=== PATIENT | female | born 1960 | race Caucasian/White ===

== ENCOUNTER 2024-01-18 12:42 | Inpatient (IN) | payer OTHER ==
[~2024-01-18] VITALS: Ht 172.7 cm; Wt 49.8 kg
[2024-01-18] VITALS (10 sets, daily range): BP systolic 152–207; BP diastolic 71–87
[2024-01-18 14:08] LABS: Source, Urine Clean Catch
[2024-01-18 14:12] LABS: Appearance, Urine Clear (Clear); Bilirubin, Urine Neg (Neg); Blood, Urine 1+ (Neg); Glucose Qualitative, Urine Neg (Neg); Ketones, Urine Neg (Neg); Leukocyte Esterase, Urine Neg (Neg); Nitrite, Urine Neg (Neg); Protein, Urine 2+ (Neg); Urobilinogen, Urine NORM (Normal)
[2024-01-18 14:15] LABS: BASOPHILS ABSOLUTE AUTO 0.03 K/mm3 (0.00-0.23); BASOPHILS PERCENT AUTO 1 % (0-2); EOSINOPHILS ABSOLUTE AUTO 0.01 K/mm3 (0.00-0.68); EOSINOPHILS PERCENT AUTO 0 % (0-6); Hematocrit 18.8 % (33.0-51.0); Hemoglobin 6.6 g/dL (11.5-16.0); IMMATURE GRAN ABSOLUTE AUTO 0.03 K/mm3 (0.00-0.10); IMMATURE GRAN PERCENT AUTO 1 % (0-1); LYMPHOCYTES ABSOLUTE AUTO 0.48 K/mm3 (0.84-5.20); LYMPHOCYTES PERCENT AUTO 8 % (21-46); MONOCYTES ABSOLUTE AUTO 0.31 K/mm3 (0.16-1.47); MONOCYTES PERCENT AUTO 5 % (4-13); Mean Corpuscular HGB 28.8 pg (26.0-34.0); Mean Corpuscular HGB Conc 35.1 g/dL (31.5-36.5); Mean Corpuscular Volume 82 fL (80-100); Mean Platelet Volume 9.1 fL (9.1-12.4); NEUTROPHILS ABSOLUTE AUTO 4.88 K/mm3 (1.96-9.15); NEUTROPHILS PERCENT AUTO 85 % (41-73); Platelet Count 325 K/mm3 (150-400); RDW Coefficient Variation 16.4 % (11.7-14.2); RDW Standard Deviation 49.3 fL (35.1-46.3); Red Blood Cell Count 2.29 M/mm3 (3.80-5.20); White Blood Cell Count 5.74 K/mm3 (4.00-11.30)
[2024-01-18 14:18] LABS: Color, Urine Pale Yellow (P-Yellow)
[2024-01-18 14:22] LABS: Bacteria Few /hpf; Squamous Epithelial Cells Few /hpf (Few); White Blood Cells, Urine 0-2 /hpf (0-5)
[2024-01-18 14:46] LABS: Albumin, Blood 3.5 g/dL (3.4-5.0); Albumin/Globulin Ratio 0.7 (0.8-1.8); Bilirubin, Total 0.4 mg/dL (0.1-1.0); Bun/Creatinine Ratio 7.7 (12.0-20.0); Calcium, Blood 9.4 mg/dL (8.5-10.1); Creatinine, Blood 13.3 mg/dL (0.40-1.00); Globulin, Blood 4.7 g/dL (2.2-4.0); Potassium, Blood 5.1 mmol/L (3.5-5.5); Total Protein, Blood 8.2 g/dL (6.4-8.2)
[2024-01-18] MEDS ORDERED: FLU VACC TS2024-25(6MOS UP)/PF 45 MCG/0.5 ML SYRINGE IM SCH (15:40)
[2024-01-18] MEDS ORDERED: Acetaminophen 500 MG Tab PO PRN (17:30)
[2024-01-18] MEDS ORDERED: FentaNYL Citrate 50 MCG/ML 2 ML Injection IV PRN (17:30)
[2024-01-18] MEDS ORDERED: Ondansetron HCl 2 MG / ML 2ML Vial IV PRN (17:30)
[2024-01-18] MEDS ORDERED: HydrALAZINE HCl 25 MG Tab PO PRN (17:30)
[2024-01-18] MEDS ORDERED: NS 500 ML IV ONE ×2 (18:03→19:08)
[2024-01-18] MEDS ORDERED: Midazolam HCl 1MG / ML 2ML Vial ONE ×2 (18:11→18:34)
[2024-01-18] MEDS ORDERED: FentaNYL Citrate 50 MCG/ML 2 ML Injection ONE (18:11)
[2024-01-18] MEDS ORDERED: NS 1,000 ML IV ONE (18:12)
--- NOTE | 2024-01-18 19:52 | NUR ---
ADMISSION PATIENT ARRIVED TO PCU 14 ON HER BED FROM [facility] WHERE BILATERAL NEPHROSTOMIES WERE PLACED. PATIENT IS VERY DROWSY AND IS STRUGGLING TO FIND HER WORDS WITH SLURRED SPEECH BUT ANSWERS ORIENTATION QUESTIONS APPROPRIATELY. PUPILS EQUAL AND REACTIVE. STRENGTH EQUAL BILATERALLY. PATIENT STARTED ON BLOOD TRANSFUSION. LUNG SOUNDS CLEAR.
--- NOTE | 2024-01-18 20:00 | NUR ---
PHYSICIAN COMMUNICATION CONTACTED DR FLYNN TO NOTIFY HER THAT THE PATIENT'S BLOOD PRESSURE IS 199 SYSTOLIC, HEART RATE IN 50'S AND THE SCHEDULED HYDRALAZINE HAS HOLDING PARAMETER SAYS TO HOLD FOR HR UNDER 120. DR FLYNN TO COME SEE THE PATIENT.
[2024-01-18] MEDS ORDERED: HydrALAZINE HCl 20 MG / ML 1ML Vial IV PRN (20:55)
[2024-01-18] MEDS ORDERED: HydrALAZINE HCl 20 MG / ML 1ML Vial IV ONE (21:00)
[2024-01-18] MEDS ORDERED: HydrALAZINE HCl 25 MG Tab PO SCH (21:00)
[2024-01-18 23:00] LABS: Hematocrit 27.1 % (33.0-51.0); Hemoglobin 9.2 g/dL (11.5-16.0)
[2024-01-18] MEDS ORDERED: NS 1,000 ML IV SCH (23:00)
[2024-01-18] MEDS ORDERED: Pantoprazole Sodium 40 MG Injection IV ONE (23:00)
[2024-01-18 23:32] LABS: International Normalized Ratio 0.97; Prothrombin Time Results 10.4 Sec (9.7-11.5)
[2024-01-19] VITALS (7 sets, daily range): BP systolic 131–158; BP diastolic 76–91
[2024-01-19] MEDS ORDERED: NS 500 ML IV SCH (04:25)
[2024-01-19 05:37] LABS: Hematocrit 22.1 % (33.0-51.0); Hemoglobin 7.7 g/dL (11.5-16.0)
--- NOTE | 2024-01-19 06:21 | NUR ---
SHIFT SUMMARY PATIENT ALERT AND ORIENTED X4. WAS MEDICATED PER EMAR FOR HEADACHE AND NAUSEA/VOMITING. ADMINISTERED A ONE TIME DOSE OF IV HYDRALAZINE AFTER DR ANAHY ARREAGA CAME TO ASSESS THE PATIENT. THE HYPERTENSION IS SLOWLY RESOLVING. PATIENT'S MENTATION HAS CLEARED AND IS SPEAKING IN FULL SENTENCES NOW WITHOUT ANY DIFFICULTY. PATIENT WAS ABLE TO WALK TO THE RESTROOM AND BACK WITH ASSISTANCE FOR LINE MANAGEMENT. PATIENT ON ROOM AIR WITH SPO2 >90%. WILL CONTINUE TO MONITOR. CALL LIGHT WITHIN REACH.
[2024-01-19 06:39] LABS: Uric Acid, Blood 7.6 mg/dL (2.6-6.0)
[2024-01-19 06:46] LABS: Albumin, Blood 3.2 g/dL (3.4-5.0); Anion Gap 23 mmol/L (3-11); Blood Urea Nitrogen 106 mg/dL (8-24); CO2, Blood 13 mmol/L (21-32); Calcium, Blood 9.2 mg/dL (8.5-10.1); Chloride, Blood 94 mmol/L (98-108); Glucose, Blood 82 mg/dL (70-99); Potassium, Blood 5.9 mmol/L (3.5-5.5); Sodium, Blood 124 mmol/L (136-145)
[2024-01-19 06:48] LABS: Bun/Creatinine Ratio 8.2 (12.0-20.0); Glomerular Filtration Rate 3 (60-); Phosphorus, Blood 8.1 mg/dL (2.5-4.9)
[2024-01-19] MEDS ORDERED: HydrALAZINE HCl 25 MG Tab PO SCH (09:00)
[2024-01-19 12:50] LABS: Calcium, Blood 8.7 mg/dL (8.5-10.1); Potassium, Blood 5.1 mmol/L (3.5-5.5)
[2024-01-19 12:51] LABS: Bun/Creatinine Ratio 8.3 (12.0-20.0); Creatinine, Blood 12.7 mg/dL (0.40-1.00)
--- NOTE | 2024-01-19 13:57 | NUR ---
PT REPORTS 3/10 BACK PAIN R/T TO "BEING IN BED IN ONE POSITION", SHE WAS OFFERED TYLENOL FOR PAIN WHICH SHE REFUSED, SHE THEN STATES THAT SHE DOES NOT WISH TO RECIEVE "ANYTHING STRONG LIKE FENTANYL BECAUSE I DON'T WANT TO BE AN ADDICT". SHE DISCUSSED WITH DR HOWARD AND MYSELF THAT SHE DOES NOT WISH TO TREAT CANCER WITH RADIATION OR CHEMO, WE DID CONSULT WITH PALLIATIVE CARE, CEDRICK DID ATTEMPT TO SEE PATIENT PT WAS NOT AVAILABLE FOR CONSULT WITH PALLIATIVE AT THE TIME AND CEDRICK WILL RETURN LATER. VSS. SHE IS ALERT, SHE APPEARS TO BE ORIENTED X3 BUT DOES SEEM TO BE FORGETFUL AND IS A POOR HISTORIAN. SHE IS CALM AND COOPERATIVE WITH CARE.
[2024-01-19] MEDS ORDERED: Sodium Bicarbonate 650 MG Tab PO SCH (21:00)
[2024-01-19 21:11] LABS: Bun/Creatinine Ratio 8.8 (12.0-20.0); Calcium, Blood 8.4 mg/dL (8.5-10.1); Creatinine, Blood 12.1 mg/dL (0.40-1.00); Potassium, Blood 5.3 mmol/L (3.5-5.5)
[2024-01-20 03:03] VITALS: BP 190/86
[2024-01-20 04:30] LABS: BASOPHILS ABSOLUTE AUTO 0.09 K/mm3 (0.00-0.23); BASOPHILS PERCENT AUTO 1 % (0-2); EOSINOPHILS ABSOLUTE AUTO 0.06 K/mm3 (0.00-0.68); EOSINOPHILS PERCENT AUTO 1 % (0-6); Hematocrit 28.2 % (33.0-51.0); Hemoglobin 9.4 g/dL (11.5-16.0); IMMATURE GRAN ABSOLUTE AUTO 0.04 K/mm3 (0.00-0.10); IMMATURE GRAN PERCENT AUTO 1 % (0-1); LYMPHOCYTES ABSOLUTE AUTO 0.79 K/mm3 (0.84-5.20); LYMPHOCYTES PERCENT AUTO 11 % (21-46); MONOCYTES ABSOLUTE AUTO 0.64 K/mm3 (0.16-1.47); MONOCYTES PERCENT AUTO 9 % (4-13); Mean Corpuscular HGB 28.2 pg (26.0-34.0); Mean Corpuscular HGB Conc 33.3 g/dL (31.5-36.5); Mean Corpuscular Volume 85 fL (80-100); Mean Platelet Volume 9.2 fL (9.1-12.4); NEUTROPHILS ABSOLUTE AUTO 5.74 K/mm3 (1.96-9.15); NEUTROPHILS PERCENT AUTO 78 % (41-73); Platelet Count 373 K/mm3 (150-400); RDW Standard Deviation 52.6 fL (35.1-46.3); Red Blood Cell Count 3.33 M/mm3 (3.80-5.20); White Blood Cell Count 7.36 K/mm3 (4.00-11.30)
--- NOTE | 2024-01-20 06:24 | NUR ---
Shift Summary- Ping had a relatively good night- no issues noted throughout. Bilateral nephrostomy sites look good. The Left one had scant drainage at the start of shift, and appeared to be slightly swollen compared to the Right side. Right side dressing was clean/dry/intact. Ping complains of no pain at either site. Both nephrostomies are putting out urine, the Right side puts out substantially more urine than the left. At 0630, after my 12hr shift, I totaled up around 3,500mLs of urine output- give or take. notified- labs ordered to monitor electrolytes per Todd's note. By 0600- the Right kidney was putting out pale, yellow urine. The left kidney is still noted to have pink urine noted throughout. No other needs throughout the night, NS still infusing at 150ml/hr as ordered. Pt has good PO intake.
[2024-01-20 06:30] LABS: Albumin, Blood 3.4 g/dL (3.4-5.0); Albumin/Globulin Ratio 0.7 (0.8-1.8); Bilirubin, Total 0.4 mg/dL (0.1-1.0); Globulin, Blood 4.9 g/dL (2.2-4.0); Phosphorus, Blood 7.6 mg/dL (2.5-4.9); Potassium, Blood 4.9 mmol/L (3.5-5.5); Total Protein, Blood 8.3 g/dL (6.4-8.2)
[2024-01-20 06:34] LABS: Bun/Creatinine Ratio 8.2 (12.0-20.0); Creatinine, Blood 11.3 mg/dL (0.40-1.00)
[2024-01-20 07:20] VITALS: BP 152/87
[2024-01-20] MEDS ORDERED: Vitamin B Cmplx/Vit C/Folic Ac 1 Tab PO SCH (09:00)
[2024-01-20] MEDS ORDERED: Thiamine HCl 100 MG Tab PO SCH (09:00)
[2024-01-20 13:13] VITALS: BP 127/69
[2024-01-20 14:55] LABS: Albumin/Globulin Ratio 0.7 (0.8-1.8); Bilirubin, Total 0.4 mg/dL (0.1-1.0); Bun/Creatinine Ratio 8.5 (12.0-20.0); Calcium, Blood 8.2 mg/dL (8.5-10.1); Creatinine, Blood 10.5 mg/dL (0.40-1.00); Globulin, Blood 4.2 g/dL (2.2-4.0); Potassium, Blood 4.3 mmol/L (3.5-5.5); Total Protein, Blood 7.2 g/dL (6.4-8.2)
--- NOTE | 2024-01-20 17:50 | NUR ---
SHIFT SUMMARY PT A&OX4. VSS. PT CHANGED TO MED NO TELE TODAY. BILAT NEPHROSTOMYS, YELLOW W/ PINK TINGE OUT PUT. MUCH MORE OUTPUT ON R, SEE I&O. PT C/O OF LOWER BACK PAIN FROM 'LAYING IN THIS BED'. MEDICATED W/ TYLENOL, SEE EMAR. REPOSTIONED Q2H AND HEATING PAD APPLIED. PT ABLE TO WORK WITH PHYSICAL THERAPY THIS AFTERNOON. FLUIDS INFUSING PER EMAR. MANY FAMILY MEMBERS IN ROOM T/O SHIFT. CURRENTLY CONFERENCE PRODUCER IN ROOM TO ASSESS. CALL LIGHT IN REACH.
[2024-01-20 20:01] VITALS: BP 142/78
[2024-01-20 20:55] LABS: Bun/Creatinine Ratio 9.1 (12.0-20.0); Calcium, Blood 7.8 mg/dL (8.5-10.1); Creatinine, Blood 10.2 mg/dL (0.40-1.00); Potassium, Blood 4.4 mmol/L (3.5-5.5)
[2024-01-20 21:01] LABS: Albumin, Blood 2.9 g/dL (3.4-5.0); Albumin/Globulin Ratio 0.7 (0.8-1.8); Bilirubin, Total 0.4 mg/dL (0.1-1.0); Globulin, Blood 4.3 g/dL (2.2-4.0); Total Protein, Blood 7.2 g/dL (6.4-8.2)
[2024-01-21 00:19] VITALS: BP 146/97
[2024-01-21 04:19] VITALS: BP 132/85
[2024-01-21 05:28] LABS: Albumin, Blood 2.7 g/dL (3.4-5.0); Anion Gap 15 mmol/L (3-11); Blood Urea Nitrogen 91 mg/dL (8-24); CO2, Blood 17 mmol/L (21-32); Calcium, Blood 7.8 mg/dL (8.5-10.1); Chloride, Blood 111 mmol/L (98-108); Glucose, Blood 87 mg/dL (70-99); Phosphorus, Blood 5.1 mg/dL (2.5-4.9); Potassium, Blood 4.6 mmol/L (3.5-5.5); Sodium, Blood 138 mmol/L (136-145)
[2024-01-21 05:37] LABS: Bun/Creatinine Ratio 9.7 (12.0-20.0); Creatinine, Blood 9.43 mg/dL (0.40-1.00); Glomerular Filtration Rate 4 (60-)
--- NOTE | 2024-01-21 05:50 | NUR ---
SHIFT SUMMARY PT IS A&OX4, PLEASANT AND COOPERATIVE. VSS ON RA. C/O DISCOMFORT TO LOW BACK MANAGED WITH 1,000MG PO TYLENOL. TOLERATING A RENAL DIET. HER DAUGHTERS BROUGHT HER IN MULTIPLE CHOICES OF FOOD ITEMS FOR DINNER. POOR APPETITE WITH DECREASED PO INTAKE. LEFT NEPHROSTOMY TUBE GOT TUGGED ON WHILE GETTING TO [facility]. SMALL AMOUNT OF SANGUINEOUS DRAINAGE IN TUBE AND IN BAG. DRESSING HAS SCANT AMOUNT OF DRIED BLOOD. LEFT NEPH TUBE HAS LESS URINE OUTPUT THAN THE RIGHT, PINK IN COLOR. RIGHT NEPH TUBE IS DRAINING LARGE AMOUNTS OF CLEAR, LIGHT YELLOW URINE. DRESSING IS C/D/I. 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 BED IN LOWEST POSITION, CALL LIGHT WITHIN REACH.
[2024-01-21 07:54] VITALS: BP 148/89
[2024-01-21 09:50] VITALS: BP 141/81
[2024-01-21] MEDS ORDERED: NS 1,000 ML IV SCH (11:50)
[2024-01-21 13:40] VITALS: BP 137/72
--- NOTE | 2024-01-21 15:57 | NUR ---
ATTEMPTED PALLIATIVE CARE VISIT. PT HAS MANY VISITORS IN THE ROOM AT THIS TIME. PT DECLINED PC VISIT. PC TO ATTEMPT VISIT AT ANOTHER TIME.
[2024-01-21 17:38] LABS: Anion Gap 12 mmol/L (3-11); Blood Urea Nitrogen 86 mg/dL (8-24); Bun/Creatinine Ratio 10.4 (12.0-20.0); CO2, Blood 19 mmol/L (21-32); Calcium, Blood 8.2 mg/dL (8.5-10.1); Chloride, Blood 109 mmol/L (98-108); Creatinine, Blood 8.29 mg/dL (0.40-1.00); Glomerular Filtration Rate 5 (60-); Glucose, Blood 95 mg/dL (70-99); Potassium, Blood 4.3 mmol/L (3.5-5.5); Sodium, Blood 136 mmol/L (136-145)
--- NOTE | 2024-01-21 18:02 | NUR ---
SHIFT SUMMARY PT A&O X4, OBEYS COMMANDS AND ABLE TO MAKE NEEDS KNOWN, ABULATED SBA WITH STAFF TO HELP WITH CORDS AND LINES. PT ON RA, SPO2 GREATER THAN 95%, NO SIGNS OF RESPIRORTY DISTRESS. BP ELEVATED AND PT MEDICATED PER EMAR, HR WNL. RIGHT NEPHROSTOMY HAVING LARGE PALE YELLOW OUTPUT, LEFT NEPHROSTOMY HAVING LITTLE PINK TINGED OUTPUT WITH BLOOD CLOTS. PT ON CONINTOUS IV FLUIDS AT 100MLS, PT REPORTS HAVING A STRANGE SMELL/ TASTE WHILE EATING/DRINKING WHICH DIMINISHED HER APPETITE, DESPITE THAT PT WAS ABLE TO TOLERATE SOME FOOD AND DRINK THIS SHIFT. CALL LIGHT IN REACH, BED LOWEST POSTION. ROUNED ON PT @ APPROX 1130 AND PT WAS OPEN TO THE IDEA OF POTENTIALLY STARTING CHEMO. DR. HOWARD CALLED BY THIS RN WITH FAMILIES AND PTS CONCERN OF PTS YELLOW SPUTUM, ORDER FOR SPUTUM CULTURE PLACED AND COLLECTED THIS SHIFT. DR. FRANCO ROUNED ON PT THIS SHIFT AND PROVIDED PT AND FAMILY WITH EDUCATION ON PLAN OF CARE AND ANSWERED QUESTIONS. DR. FRANCO WANTS A CONSULT WITH DR. DORAN TO ASSESS THE PTS LEFT NEPHROSTOMY. CONSULT CALLED IN THIS SHIFT.
[2024-01-21 20:54] VITALS: BP 144/80
[2024-01-22 04:30] VITALS: BP 143/80
[2024-01-22 04:33] LABS: BASOPHILS ABSOLUTE AUTO 0.09 K/mm3 (0.00-0.23); BASOPHILS PERCENT AUTO 1 % (0-2); EOSINOPHILS ABSOLUTE AUTO 0.28 K/mm3 (0.00-0.68); EOSINOPHILS PERCENT AUTO 3 % (0-6); Hematocrit 22.2 % (33.0-51.0); Hemoglobin 7.2 g/dL (11.5-16.0); IMMATURE GRAN ABSOLUTE AUTO 0.06 K/mm3 (0.00-0.10); IMMATURE GRAN PERCENT AUTO 1 % (0-1); LYMPHOCYTES PERCENT AUTO 9 % (21-46); MONOCYTES ABSOLUTE AUTO 0.66 K/mm3 (0.16-1.47); MONOCYTES PERCENT AUTO 7 % (4-13); Mean Corpuscular HGB 28.1 pg (26.0-34.0); Mean Corpuscular HGB Conc 32.4 g/dL (31.5-36.5); Mean Corpuscular Volume 87 fL (80-100); Mean Platelet Volume 8.9 fL (9.1-12.4); NEUTROPHILS ABSOLUTE AUTO 7.97 K/mm3 (1.96-9.15); NEUTROPHILS PERCENT AUTO 80 % (41-73); Platelet Count 352 K/mm3 (150-400); RDW Standard Deviation 57.4 fL (35.1-46.3); Red Blood Cell Count 2.56 M/mm3 (3.80-5.20); White Blood Cell Count 9.96 K/mm3 (4.00-11.30)
[2024-01-22 04:52] LABS: Albumin, Blood 2.8 g/dL (3.4-5.0); Anion Gap 14 mmol/L (3-11); Blood Urea Nitrogen 84 mg/dL (8-24); CO2, Blood 18 mmol/L (21-32); Calcium, Blood 8.2 mg/dL (8.5-10.1); Chloride, Blood 111 mmol/L (98-108); Creatinine, Blood 7.62 mg/dL (0.40-1.00); Glomerular Filtration Rate 5 (60-); Glucose, Blood 82 mg/dL (70-99); Phosphorus, Blood 4.7 mg/dL (2.5-4.9); Potassium, Blood 4.6 mmol/L (3.5-5.5); Sodium, Blood 138 mmol/L (136-145)
--- NOTE | 2024-01-22 05:55 | NUR ---
SHIFT SUMMARY PATIENT ALERT AND ORIENTED X4. HAD NO COMPLAINTS OF PAIN OR SHORTNESS OF BREATH. WAS ON ROOM AIR OVERNIGHT WITH SPO2 >90%. VITAL SIGNS STABLE. NEPHROSTOMY TUBES PATENT AND DRAINING, RIGHT ONE AT A FASTER RATE THAN THE LEFT. NO ACUTE ISSUES NOTED OVERNIGHT. WILL CONTINUE TO MONITOR. CALL LIGHT WITHIN REACH.
[2024-01-22 09:24] VITALS: BP 142/75
[2024-01-22 14:39] VITALS: BP 148/90
[2024-01-22 16:54] LABS: Albumin, Blood 2.9 g/dL (3.4-5.0); Anion Gap 13 mmol/L (3-11); Blood Urea Nitrogen 78 mg/dL (8-24); Bun/Creatinine Ratio 12.2 (12.0-20.0); CO2, Blood 20 mmol/L (21-32); Calcium, Blood 8.1 mg/dL (8.5-10.1); Chloride, Blood 107 mmol/L (98-108); Creatinine, Blood 6.41 mg/dL (0.40-1.00); Glomerular Filtration Rate 7 (60-); Glucose, Blood 117 mg/dL (70-99); Phosphorus, Blood 3.4 mg/dL (2.5-4.9); Potassium, Blood 3.9 mmol/L (3.5-5.5); Sodium, Blood 136 mmol/L (136-145)
[2024-01-22 18:10] VITALS: BP 145/83
--- NOTE | 2024-01-22 18:46 | NUR ---
PT HAS BEEN RESTING WELL T/O THE DAY IN BED. SHE WAS TREATED ONCE FOR PAIN WITH TYLENOL. SHE DENIES CP AND SOB. VSS. SHE IS ABLE TO USE CALL LIGHT TO MAKE NEEDS KNOWN. NEPHROLOGY TO ROOM THIS AM TO ASSESS NEPHROSTOMY TUBES.
[2024-01-22 20:02] LABS: ALBUMIN 3.53 g/dL (3.75-5.01); ALPHA 1 GLOBULIN 0.37 g/dL (0.19-0.46); ALPHA 2 GLOBULIN 0.66 g/dL (0.48-1.05); BETA GLOBULIN 0.77 g/dL (0.48-1.10); GAMMA 1.57 g/dL (0.62-1.51); TOTAL PROTEIN,SERUM 6.9 g/dL (6.3-8.2)
[2024-01-22 20:30] VITALS: BP 141/78
[2024-01-22] MEDS ORDERED: Sodium Bicarbonate 650 MG Tab PO SCH (21:00)
--- NOTE | 2024-01-22 21:43 | NUR ---
REPORT GIVEN TO NEHEMIAH AHUMADA RN FOR ASSUMPTION OF CARE. PATIENT IS BEING TRANSFERRED FROM PCU 14 TO MEDICAL FLOOR ROOM 310.
[2024-01-23 03:55] VITALS: BP 163/96
[2024-01-23 06:43] LABS: Albumin, Blood 2.8 g/dL (3.4-5.0); Anion Gap 13 mmol/L (3-11); Blood Urea Nitrogen 66 mg/dL (8-24); Bun/Creatinine Ratio 10.8 (12.0-20.0); CO2, Blood 20 mmol/L (21-32); Calcium, Blood 8.4 mg/dL (8.5-10.1); Chloride, Blood 113 mmol/L (98-108); Glomerular Filtration Rate 7 (60-); Glucose, Blood 84 mg/dL (70-99); Phosphorus, Blood 3.9 mg/dL (2.5-4.9); Potassium, Blood 4.2 mmol/L (3.5-5.5); Sodium, Blood 142 mmol/L (136-145)
[2024-01-23 07:41] VITALS: BP 148/83
[2024-01-23 13:53] VITALS: BP 176/158
[2024-01-23 14:48] VITALS: BP 148/85
--- NOTE | 2024-01-23 17:04 | NUR ---
SHIFT SUMMARY PT IS A/OX4. EVALUATED BY PT THIS AFTERNOON. PT REMAINS ON RA WITH NO REPORTS OF SOB. NEPHROSTOMY TUBES PATENT AND DRAINING, THE RIGHT STILL DRAINGING FASTER THAN THE LEFT. DRAINING CLEAR, YELLOW URINE. NEPHROSTOMY BAG REQUIRED TO BE EMPTIED EVERY 1-2 HOURS. NO ACUTE EVENTS THROUGHOUT THE SHIFT. POSSIBLE STENT PLACEMENT FOR THE LEFT NEPHROSTOMY TOMORROW.
[2024-01-23 19:00] LABS: Albumin, Blood 3.1 g/dL (3.4-5.0); Anion Gap 12 mmol/L (3-11); Blood Urea Nitrogen 71 mg/dL (8-24); Bun/Creatinine Ratio 12.8 (12.0-20.0); CO2, Blood 22 mmol/L (21-32); Calcium, Blood 8.4 mg/dL (8.5-10.1); Chloride, Blood 107 mmol/L (98-108); Creatinine, Blood 5.55 mg/dL (0.40-1.00); Glomerular Filtration Rate 8 (60-); Glucose, Blood 95 mg/dL (70-99); Phosphorus, Blood 4.5 mg/dL (2.5-4.9); Potassium, Blood 4.3 mmol/L (3.5-5.5); Sodium, Blood 137 mmol/L (136-145)
[2024-01-23 19:48] VITALS: BP 148/94
[2024-01-24 03:55] VITALS: BP 144/91
--- NOTE | 2024-01-24 06:23 | NUR ---
SHIFT SUMMARY: Pt is admitted for acute renal failure and is a DNR. is alert and able to make needs known. ADLs have been 1p. Jaun pain or discomfort when asked. Bilateral neph tubs in place with dressing CDI. greater than 2000ml out on right about 300 out on left.
[2024-01-24 07:16] VITALS: BP 143/87
[2024-01-24 07:19] LABS: BASOPHILS ABSOLUTE AUTO 0.06 K/mm3 (0.00-0.23); BASOPHILS PERCENT AUTO 1 % (0-2); EOSINOPHILS PERCENT AUTO 4 % (0-6); Hematocrit 22.3 % (33.0-51.0); Hemoglobin 7.3 g/dL (11.5-16.0); IMMATURE GRAN ABSOLUTE AUTO 0.03 K/mm3 (0.00-0.10); IMMATURE GRAN PERCENT AUTO 0 % (0-1); LYMPHOCYTES PERCENT AUTO 12 % (21-46); MONOCYTES ABSOLUTE AUTO 0.65 K/mm3 (0.16-1.47); MONOCYTES PERCENT AUTO 8 % (4-13); Mean Corpuscular HGB 28.2 pg (26.0-34.0); Mean Corpuscular HGB Conc 32.7 g/dL (31.5-36.5); Mean Corpuscular Volume 86 fL (80-100); Mean Platelet Volume 9.1 fL (9.1-12.4); NEUTROPHILS ABSOLUTE AUTO 6.18 K/mm3 (1.96-9.15); NEUTROPHILS PERCENT AUTO 75 % (41-73); Platelet Count 401 K/mm3 (150-400); RDW Coefficient Variation 18.5 % (11.7-14.2); RDW Standard Deviation 58.1 fL (35.1-46.3); Red Blood Cell Count 2.59 M/mm3 (3.80-5.20); White Blood Cell Count 8.22 K/mm3 (4.00-11.30)
[2024-01-24 07:31] LABS: Anion Gap 11 mmol/L (3-11); Blood Urea Nitrogen 65 mg/dL (8-24); Bun/Creatinine Ratio 12.1 (12.0-20.0); CO2, Blood 23 mmol/L (21-32); Chloride, Blood 109 mmol/L (98-108); Creatinine, Blood 5.38 mg/dL (0.40-1.00); Glomerular Filtration Rate 8 (60-); Glucose, Blood 88 mg/dL (70-99); Phosphorus, Blood 4.2 mg/dL (2.5-4.9); Potassium, Blood 4.1 mmol/L (3.5-5.5); Sodium, Blood 139 mmol/L (136-145)
[2024-01-24 15:19] VITALS: BP 158/82
[2024-01-24] MEDS ORDERED: NS 250 ML IV ONE ×2 (17:01→18:08)
--- NOTE | 2024-01-24 17:22 | NUR ---
SHIFT SUMMARY: PT AOX4 AND TOLERATING NPO WELL. SEEMS IN GOOD SPIRITS AND PLEASANT MOOD AND AFFECT. GOT UP AND DID A WALK AROUND THE UNIT WITH PT. HAS BEEN CHATTING ON THE PHONE. SCHEDULED FOR NEPHROSTOMY STENT TODAY AWAITING FOR THEIR TURN. HAS BEEN HAVING A LOT OF OUTPUT ON THE R NEPHROSTOMY AND MINIMAL ON THE L. LABS ARE TRENDING BETTER. PT ANXIOUS FOR SURGERY. PT IN BED DRAWING, BED IN LOWEST POSITION AND CALL LIGHT IN REACH. CONTINUING CARE.
[2024-01-24] MEDS ORDERED: FentaNYL Citrate 50 MCG/ML 2 ML Injection ONE ×2 (17:37→18:02)
[2024-01-24] MEDS ORDERED: NS 1,000 ML IV ONE (17:37)
[2024-01-24] MEDS ORDERED: Midazolam HCl 1MG / ML 2ML Vial ONE ×2 (17:37→18:02)
[2024-01-24] MEDS ORDERED: NS 1,000 ML IV SCH (18:05)
[2024-01-24 20:31] LABS: Albumin, Blood 3.1 g/dL (3.4-5.0); Anion Gap 10 mmol/L (3-11); Blood Urea Nitrogen 64 mg/dL (8-24); Bun/Creatinine Ratio 12.4 (12.0-20.0); CO2, Blood 24 mmol/L (21-32); Calcium, Blood 9.1 mg/dL (8.5-10.1); Chloride, Blood 109 mmol/L (98-108); Creatinine, Blood 5.18 mg/dL (0.40-1.00); Glomerular Filtration Rate 9 (60-); Glucose, Blood 168 mg/dL (70-99); Potassium, Blood 4.2 mmol/L (3.5-5.5); Sodium, Blood 139 mmol/L (136-145)
[2024-01-24 21:45] VITALS: BP 122/86
[2024-01-25 04:43] VITALS: BP 155/91
[2024-01-25 06:22] LABS: Anion Gap 10 mmol/L (3-11); Blood Urea Nitrogen 64 mg/dL (8-24); Bun/Creatinine Ratio 13.3 (12.0-20.0); CO2, Blood 22 mmol/L (21-32); Calcium, Blood 8.8 mg/dL (8.5-10.1); Chloride, Blood 111 mmol/L (98-108); Creatinine, Blood 4.81 mg/dL (0.40-1.00); Glomerular Filtration Rate 9 (60-); Glucose, Blood 111 mg/dL (70-99); Phosphorus, Blood 3.9 mg/dL (2.5-4.9); Potassium, Blood 4.4 mmol/L (3.5-5.5); Sodium, Blood 139 mmol/L (136-145)
--- NOTE | 2024-01-25 06:47 | NUR ---
SHIFT SUMMARY: Pt is admitted for acute renal failure and is a DNR. is alert and able to make needs known. ADLs have been 1p. Jaun pain or discomfort when asked. Left neph tube has had low output. Right neph stent has not has any issues noted. Pt has been up to use the restroom several times with good output.
[2024-01-25 07:11] VITALS: BP 149/78
[2024-01-25] MEDS ORDERED: ACET500 PO (12:48)
[2024-01-25] MEDS ORDERED: SODBIC650 PO (13:05)
[2024-01-25] MEDS ORDERED: HYDRA25 PO (13:05)
[2024-01-25] MEDS ORDERED: B-1100 M1 PO (13:07)
[2024-01-25] MEDS ORDERED: ONDA4ODT MM (13:08)
--- NOTE | 2024-01-25 13:34 | NUR ---
DISCHARGE SUMMARY: PT EDUCATED PER RESOURCES. AOX4 AND LUNGS CLEAR BILATERALLY AMBULATED INTO WHEELCHAIR. TAKEN DOWN TO PT ENTRANCE WHERE DAUGHTER IS WAITING IN THE CAR. UNDERSTANDS DISCHARGE CRITERIA. NEEDS TO MAKE APPOINTMENT WITH A PCP AND FOLLOW UP FROM THERE. MEDICATIONS SENT TO [facility] AND TEACHING PERFORMED. PT IN GOOD MOOD AND AFFECT.
== END 2024-01-25 13:37 | disposition home health service (06) | DRG 693 ==
LOC: ER 12:42 → PCU 15:40 → MEDS 01-22 21:57 → ENPENDDIS 01-25 11:30 → MEDS 01-25 13:37
PROVIDERS: Emergency Medicine; Family Medicine; Hospitalist; Internal Medicine; ADMIT Internal Medicine
PROC: 30233N1 Transfusion of Nonautologous Red Blood Cells into Peripheral Vein, Percutaneous Approach (ICD-10-PCS; 2024-01-18)
PROC: 0T9330Z Drainage of Right Kidney Pelvis with Drainage Device, Percutaneous Approach (ICD-10-PCS; 2024-01-18)
PROC: 0T9430Z Drainage of Left Kidney Pelvis with Drainage Device, Percutaneous Approach (ICD-10-PCS; 2024-01-18)
PROC: 0T763DZ Dilation of Right Ureter with Intraluminal Device, Percutaneous Approach (ICD-10-PCS; principal; 2024-01-24)
PROC: 0T25X0Z Change Drainage Device in Kidney, External Approach (ICD-10-PCS; 2024-01-24)
DX: N13.1 Hydronephrosis with ureteral stricture, not elsewhere classified (principal); E43 Unspecified severe protein-calorie malnutrition; E87.1 Hypo-osmolality and hyponatremia; E87.21 Acute metabolic acidosis; Z68.1 Body mass index [BMI] 19.9 or less, adult; N17.9 Acute kidney failure, unspecified; I10 Essential (primary) hypertension; Z66 Do not resuscitate; C53.9 Malignant neoplasm of cervix uteri, unspecified; E88.A Wasting disease (syndrome) due to underlying condition; D64.81 Anemia due to antineoplastic chemotherapy
CPT/HCPCS: 36415; 36430; 76770; 76937; 80048; 80053; 80069; 81001; 82607; 82728; 82746; 83540; 83550; 84100; 84155; 84165; 84443; 84550; 85014; 85018; 85025; 85610; 86850; 86900; 86901; 86923; 87070; 87077; 87185; 87186; 87205; 94762; 97110; 97116; 97161; 97530; 99152; 99153; 99285-25; A9270; C1729; C1769; C1887; C2617; J0360; J2250; J2405; J2470; J3010; J7030; J7040; J7050; P9016; Q9967

== ENCOUNTER → 2024-01-18 | Outpatient (CLI) | payer OTHER ==
[2024-01-18 11:39] LABS: BASOPHILS ABSOLUTE AUTO 0.04 K/mm3 (0.00-0.23); BASOPHILS PERCENT AUTO 1 % (0-2); EOSINOPHILS ABSOLUTE AUTO 0.03 K/mm3 (0.00-0.68); EOSINOPHILS PERCENT AUTO 1 % (0-6); Hematocrit 19.6 % (33.0-51.0); Hemoglobin 6.9 g/dL (11.5-16.0); IMMATURE GRAN ABSOLUTE AUTO 0.01 K/mm3 (0.00-0.10); IMMATURE GRAN PERCENT AUTO 0 % (0-1); LYMPHOCYTES ABSOLUTE AUTO 0.56 K/mm3 (0.84-5.20); LYMPHOCYTES PERCENT AUTO 9 % (21-46); MONOCYTES ABSOLUTE AUTO 0.41 K/mm3 (0.16-1.47); MONOCYTES PERCENT AUTO 7 % (4-13); Mean Corpuscular HGB 28.9 pg (26.0-34.0); Mean Corpuscular HGB Conc 35.2 g/dL (31.5-36.5); Mean Corpuscular Volume 82 fL (80-100); Mean Platelet Volume 9.7 fL (9.1-12.4); NEUTROPHILS ABSOLUTE AUTO 5.03 K/mm3 (1.96-9.15); NEUTROPHILS PERCENT AUTO 83 % (41-73); Platelet Count 353 K/mm3 (150-400); RDW Coefficient Variation 16.1 % (11.7-14.2); RDW Standard Deviation 48.5 fL (35.1-46.3); Red Blood Cell Count 2.39 M/mm3 (3.80-5.20); White Blood Cell Count 6.08 K/mm3 (4.00-11.30)
[2024-01-18 11:55] LABS: Albumin, Blood 3.6 g/dL (3.4-5.0); Albumin/Globulin Ratio 0.7 (0.8-1.8); Bilirubin, Total 0.4 mg/dL (0.1-1.0); Calcium, Blood 9.3 mg/dL (8.5-10.1); Globulin, Blood 4.9 g/dL (2.2-4.0); Potassium, Blood 5.5 mmol/L (3.5-5.5); Total Protein, Blood 8.5 g/dL (6.4-8.2)
[2024-01-18 12:11] LABS: Creatinine, Blood 13.73 mg/dL (0.40-1.00)
== END | disposition home or self-care (01) ==
LOC: LAB 11:34 → LAB SHORT 11:34
PROVIDERS: Physician Assistant
DX: R10.9 Unspecified abdominal pain (principal)
CPT/HCPCS: 80053; 83690; 85025

== ENCOUNTER 2024-04-06 16:44 | Emergency (ER) | payer OTHER ==
[~2024-04-06] VITALS: Ht 172.7 cm; Wt 52.2 kg
[~2024-04-06 16:44] MED LIST: ACET500 PO; B-1100 M1 PO; HYDRA25 PO; ONDA4ODT MM; SODBIC650 PO
[2024-04-06 23:27] VITALS: BP 161/90
== END 2024-04-06 23:29 | disposition home or self-care (01) ==
LOC: ER 16:44
DX: R31.9 Hematuria, unspecified (principal); Z79.899 Other long term (current) drug therapy
CPT/HCPCS: 99283

== ENCOUNTER 2024-04-11 17:26 | Inpatient (IN) | payer OTHER ==
[~2024-04-11] VITALS: Ht 167.6 cm; Wt 47.9 kg
[2024-04-11 18:30] LABS: BASOPHILS ABSOLUTE AUTO 0.08 K/mm3 (0.00-0.23); BASOPHILS PERCENT AUTO 1 % (0-2); EOSINOPHILS ABSOLUTE AUTO 0.15 K/mm3 (0.00-0.68); EOSINOPHILS PERCENT AUTO 2 % (0-6); Hematocrit 25.1 % (33.0-51.0); Hemoglobin 8.1 g/dL (11.5-16.0); IMMATURE GRAN ABSOLUTE AUTO 0.03 K/mm3 (0.00-0.10); IMMATURE GRAN PERCENT AUTO 0 % (0-1); LYMPHOCYTES ABSOLUTE AUTO 1.09 K/mm3 (0.84-5.20); LYMPHOCYTES PERCENT AUTO 13 % (21-46); MONOCYTES ABSOLUTE AUTO 0.66 K/mm3 (0.16-1.47); MONOCYTES PERCENT AUTO 8 % (4-13); Mean Corpuscular HGB 30.3 pg (26.0-34.0); Mean Corpuscular HGB Conc 32.3 g/dL (31.5-36.5); Mean Corpuscular Volume 94 fL (80-100); Mean Platelet Volume 8.9 fL (9.1-12.4); NEUTROPHILS ABSOLUTE AUTO 6.32 K/mm3 (1.96-9.15); NEUTROPHILS PERCENT AUTO 76 % (41-73); Platelet Count 362 K/mm3 (150-400); RDW Coefficient Variation 13.5 % (11.7-14.2); RDW Standard Deviation 46.2 fL (35.1-46.3); Red Blood Cell Count 2.67 M/mm3 (3.80-5.20); White Blood Cell Count 8.33 K/mm3 (4.00-11.30)
[2024-04-11 19:32] LABS: Albumin, Blood 3.3 g/dL (3.4-5.0); Albumin/Globulin Ratio 0.6 (0.8-1.8); Bilirubin, Total 0.5 mg/dL (0.1-1.0); Bun/Creatinine Ratio 11.2 (12.0-20.0); Calcium, Blood 9.6 mg/dL (8.5-10.1); Globulin, Blood 5.1 g/dL (2.2-4.0); Potassium, Blood 4.9 mmol/L (3.5-5.5); Total Protein, Blood 8.4 g/dL (6.4-8.2)
[2024-04-12] MEDS ORDERED: Ondansetron HCl 2 MG / ML 2ML Vial IV PRN (02:00)
[2024-04-12] MEDS ORDERED: FLU VACC TS2024-25(6MOS UP)/PF 45 MCG/0.5 ML SYRINGE IM ONE (02:05)
[2024-04-12] MEDS ORDERED: Sodium Bicarb 8.4% Inj 150 MEQ in Dextrose 5% 1,000 ML IV SCH (02:15)
[2024-04-12 07:05] LABS: Hematocrit 23.3 % (33.0-51.0); Hemoglobin 7.5 g/dL (11.5-16.0); Mean Corpuscular HGB Conc 32.2 g/dL (31.5-36.5); Mean Corpuscular Volume 93 fL (80-100); Mean Platelet Volume 9.4 fL (9.1-12.4); Platelet Count 337 K/mm3 (150-400); RDW Coefficient Variation 13.3 % (11.7-14.2); RDW Standard Deviation 46.1 fL (35.1-46.3); White Blood Cell Count 7.77 K/mm3 (4.00-11.30)
[2024-04-12 07:45] LABS: Calcium, Blood 9.2 mg/dL (8.5-10.1); Creatinine, Blood 9.42 mg/dL (0.40-1.00); Potassium, Blood 4.5 mmol/L (3.5-5.5)
[2024-04-12] MEDS ORDERED: HydrALAZINE HCl 25 MG Tab PO SCH (09:00)
[2024-04-12] MEDS ORDERED: Heparin Sodium 5000 Units/ML 1ML MDV SC SCH (09:00)
[2024-04-12 09:48] VITALS: BP 136/86
[2024-04-12] MEDS ORDERED: OxyCODONE HCL 5 MG TAB PO PRN (14:15)
[2024-04-12 16:25] VITALS: BP 142/80
--- NOTE | 2024-04-12 17:36 | NUR ---
REPORT RECEIVED VERIFIED, VERY PLEASENT PT A/O VSS. BILATERAL NEPHROSTOMY DRAINING WELL, RIGHT HAVING PINK YELLOW URINE AND THE LEFT CLR YELLOW. MINIMAL PAIN TO LEFT FLANK. ADMISSION DONE, IV INFUSING AND PT WAITING FOR POSSIBLE MRI, PT IN GOOD SPIRITS AND MAKES NEEDS KNOWN.
--- NOTE | 2024-04-12 17:38 | NUR ---
1440 PT TAKEN FOR MRI AND RETURNED BY 1600, RESULTS TO FOLLOW.
--- NOTE | 2024-04-12 19:03 | NUR ---
1800 NOTED THAT PREVIOUSLY CLR LEFT NEPHROSTOMY TUBE HAD BLOOD IN TUBING, DRESSING CHANGE WAS DONE FOR SOME LEAKING. NO INCREASED C/O PAIN FOR PT. RIGHT TUBE LOOKS LIKE IT HAS STOPPED BLEEDING. DR HOWARD WAS NOTIFIED.
[2024-04-12 19:05] VITALS: BP 124/75
[2024-04-12] MEDS ORDERED: Famotidine 20 MG Tab PO SCH (21:00)
[2024-04-12] MEDS ORDERED: DESMOPRESSIN ACETATE IV SCH (21:30)
[2024-04-12] MEDS ORDERED: NS IV SCH (21:30)
[2024-04-12] MEDS ORDERED: Sodium Bicarb 8.4% Inj 75 MEQ in Sodium Chloride 0.45% 1,000 ML IV SCH (21:30)
[2024-04-12] MEDS ORDERED: Misc. Tablet PO PRN (21:35)
--- NOTE | 2024-04-12 22:31 | NUR ---
NEW T-ORDER FROM ON-CALL HOSPITALIST : COLACE 100MG PO PRN FOR CONSTIPATION. ENTERED TO [facility], SEE EMAR. NO ADDITIONAL NEW ORDERS AT THIS TIME.
[2024-04-12] MEDS ORDERED: Docusate Sodium 100 MG Cap PO PRN (22:35)
--- NOTE | 2024-04-12 22:39 | NUR ---
NEW VERBAL ORDER ENTERED TO [facility]. PT'S HOME MEDICATION "PAIN-RX": 2 TABS QD PRN PO FOR MODERATE PAIN. V-ORDER RECEIVED FROM DR. JULIA FRANCO BY THIS MECHANICAL DRAFTER. (SEE EMAR). NO ADDITIONAL NEW VERBAL ORDERS AT THIS TIME. MEDICATION BOTTLE SENT TO PHARMACY TO GET A BARCODE FOR THE BOTTLE.
[2024-04-12] MEDS ORDERED: NS 250 ML IV PRN (22:40)
[2024-04-13 03:27] VITALS: BP 139/80
--- NOTE | 2024-04-13 04:26 | NUR ---
SHIFT SUMMARY PT IS A/O X4, PLEASANT AND COOPERATIVE WITH CARE. RIGHT NEPHROSTOMY OUTPUT>850MLS OF LIGHT REDDISH URINE, LEFT NEPHROSTOMY BAG TOTAL OUTPUT 200MLS DURING THIS SHIFT. PT REPORTS PAIN LEVEL OF 2/10 ON RIGHT FLANK AND ABDOMEN. PT DENIES A NEED FOR ROXYCODONE, D/T "POSSIBLY GETTING ADDICTED TO OPIOIDS." PT BROUGHT A HOME MEDICATION "PAIN RX", WHICH WAS OK'D BY DR. FRANCO, NEW ORDER IS ON EMAR 2 TABS QD PRN. SODIUM BICARB INFUSING ORDERED, DESMOPRESSIN WAS INFUSED ORDERED AT HS. BY THE BEDSIDE @HS. PT AWAKE MOST OF THE NIGHT IN GOOD SPIRITS, SMILING AND TALKATIVE. NO ACUTE EVENTS DURING THIS SHIFT. BED AT THE LOWEST POSITION, CALL LIGHT WITHIN REACH. PT IS ABLE TO MAKE HER NEEDS KNOWN.
[2024-04-13 05:08] LABS: BASOPHILS ABSOLUTE AUTO 0.04 K/mm3 (0.00-0.23); BASOPHILS PERCENT AUTO 1 % (0-2); EOSINOPHILS ABSOLUTE AUTO 0.28 K/mm3 (0.00-0.68); EOSINOPHILS PERCENT AUTO 5 % (0-6); Hematocrit 20.8 % (33.0-51.0); Hemoglobin 6.8 g/dL (11.5-16.0); IMMATURE GRAN ABSOLUTE AUTO 0.02 K/mm3 (0.00-0.10); IMMATURE GRAN PERCENT AUTO 0 % (0-1); LYMPHOCYTES ABSOLUTE AUTO 0.95 K/mm3 (0.84-5.20); LYMPHOCYTES PERCENT AUTO 18 % (21-46); MONOCYTES PERCENT AUTO 11 % (4-13); Mean Corpuscular HGB Conc 32.7 g/dL (31.5-36.5); Mean Corpuscular Volume 92 fL (80-100); NEUTROPHILS ABSOLUTE AUTO 3.53 K/mm3 (1.96-9.15); NEUTROPHILS PERCENT AUTO 65 % (41-73); Platelet Count 306 K/mm3 (150-400); RDW Coefficient Variation 13.3 % (11.7-14.2); RDW Standard Deviation 45.3 fL (35.1-46.3); Red Blood Cell Count 2.27 M/mm3 (3.80-5.20); White Blood Cell Count 5.42 K/mm3 (4.00-11.30)
[2024-04-13 05:24] LABS: International Normalized Ratio 0.99; Prothrombin Time Results 10.6 Sec (9.7-11.5)
[2024-04-13 05:41] LABS: Iron Serum 27 ug/dL (50-170); Percent Saturation 8.6 % (15.0-50.0); Total Iron Binding Capacity 314 ug/dL (250-450)
[2024-04-13 05:47] LABS: Albumin, Blood 2.8 g/dL (3.4-5.0); Anion Gap 15 mmol/L (3-11); Blood Urea Nitrogen 99 mg/dL (8-24); CO2, Blood 26 mmol/L (21-32); Calcium, Blood 8.8 mg/dL (8.5-10.1); Chloride, Blood 91 mmol/L (98-108); Creatinine, Blood 9.02 mg/dL (0.40-1.00); Glomerular Filtration Rate 4 (60-); Glucose, Blood 82 mg/dL (70-99); Phosphorus, Blood 8.9 mg/dL (2.5-4.9); Potassium, Blood 4.3 mmol/L (3.5-5.5); Sodium, Blood 128 mmol/L (136-145)
--- NOTE | 2024-04-13 05:48 | NUR ---
critical lab values received @0556 from lab: phosphorus: 8.9 and creatinine 9.02. notified over the phone @9060. No new orders at this time.
[2024-04-13 07:29] VITALS: BP 147/72
[2024-04-13] MEDS ORDERED: NS 1,000 ML IV SCH (10:10)
[2024-04-13] MEDS ORDERED: Sod Ferric Gluc Complx/Sucrose 125 MG in NS 100 ML IV SCH (11:00)
--- NOTE | 2024-04-13 13:12 | NUR ---
REPORT RECEIVED VERIFIED. PT LAYING QUIETLY, A/O X4 WITH MINIMAL C/O PAIN. PT WAS TREATED PER JUN. IV INFUSING AND BILATERAL NEPHROSTOMY TUBE BOTH PATENT WITH RIGHT DRAINING 3 TIMES FASTER THAN LEFT. RIGHT DRAIN HAS MINIMAL BLOOD NOTED, MUCH BETTER THAN EVENING BEFORE. PT IS AMBULATORY AND IS ABLE TO MAKE NEEDS KNOWN. CALL LIGHT WITHIN REACH.
[2024-04-13] MEDS ORDERED: Polyethylene Glycol 3350 17 gm PO SCH (14:35)
[2024-04-13 16:01] VITALS: BP 139/77
--- NOTE | 2024-04-13 17:51 | NUR ---
NEW IV TO RIGHT FOREARM STARTED AND ADAIR WELL, IV IRON WAS STARTED BUT PT QUICKLY GREW NAUSEAS AND VOMITED. PT WAS ABLE TO ADAIR REST OF INFUSION.
[2024-04-13 20:46] VITALS: BP 152/88
[2024-04-13] MEDS ORDERED: Docusate Sodium 100 MG Cap PO SCH (21:00)
--- NOTE | 2024-04-14 02:52 | NUR ---
SHIFT SUMMARY NO ACUTE EVENTS DURING THIS SHIFT. PT C/O 5/10 H/A AND LEFT FLANK PAIN. MEDICATED WITH PRN PO ROXICODONE 5MG ORDERED. LEFT NEPHROSTOMY DRAINING TO GRAVITY LESS THAN RIGHT NEPHROSTOMY BAG. RIGHT BAG EMPTIED Q2HRS T/O THIS SHIFT. LEFT SIDE OUTPUT REDDISH COLOR WITH SOME SEDIMENT. PT C/O N/V, DENIED A NEED FOR PRN ZOFRAN, REPORTED FEELING BETTER AFTER VOMITING. NO BM DURING THIS SHIFT, CONTINUING WITH SCHEDULED MIRALAX AND COLACE. BOWEL TONES HYPOACTIVE PER AUSCULTATION. NS INFUSING @75MLS/HR ORDERED. PT IS A&O X4, IN BEDREST. BED AT THE LOWEST POSITION,CALL LIGHT W/I REACH. PT IS ABLE TO MAKE HER NEEDS KNOWN.
[2024-04-14 04:30] VITALS: BP 116/86
[2024-04-14 05:18] LABS: Albumin, Blood 3.1 g/dL (3.4-5.0); Anion Gap 15 mmol/L (3-11); Blood Urea Nitrogen 82 mg/dL (8-24); Bun/Creatinine Ratio 10.6 (12.0-20.0); CO2, Blood 25 mmol/L (21-32); Calcium, Blood 8.5 mg/dL (8.5-10.1); Chloride, Blood 90 mmol/L (98-108); Glomerular Filtration Rate 5 (60-); Glucose, Blood 92 mg/dL (70-99); Phosphorus, Blood 6.3 mg/dL (2.5-4.9); Potassium, Blood 4.1 mmol/L (3.5-5.5); Sodium, Blood 126 mmol/L (136-145)
[2024-04-14 07:30] VITALS: BP 139/72
--- NOTE | 2024-04-14 09:48 | NUR ---
DOING WELL TODAY, MINIMAL C/O PAIN TO BACK AND LEFT FLANK PT WAS TREATED PER MAR, NEPHROSTOMY TUBE PATENT, RIGHT DRAINING LARGE VOLUME PINK YELLOW, LEFT DRAINING CLR YELLOW BUT MINIMAL OUTPUT. PT WAS ABLE TO HAVE MOD BM NO BLOOD NOTED BUT STATED SHE HAD SMALL QUARTER SIZE VAGINAL CLOT. WILL CONT TO MONITOR
[2024-04-14 20:46] VITALS: BP 114/68
--- NOTE | 2024-04-15 03:35 | NUR ---
SHIFT SUMMARY NO ACUTE EVENTS DURING THIS SHIFT. @HS DR. MOREJON BY THE BEDSIDE. RIGHT NEPHROSTOMY BAG EMPTIED Q1-2HRS, OUTPUT>1.5L OF LIGHT PINK/LIGHT YELLOW. LEFT NEPHROSTOMY BAG OUTPUT<500MLS. PT DENIES PAIN, N/V. NS INFUSING@75MLS/HR ORDERED. PT IS A&O X4, TALKATIVE, ABLE TO MAKE HER NEEDS KNOWN. BED AT THE LOWEST POSITION, CALL LIGHT W/I REACH. SBA TO THE RESTROOM, @HS PT REPORTS VOIDING MODERATE AMOUNT IN THE TOILET.
[2024-04-15 04:21] VITALS: BP 120/85
[2024-04-15 07:53] VITALS: BP 123/69
[2024-04-15 09:34] LABS: Anion Gap 16 mmol/L (3-11); Blood Urea Nitrogen 69 mg/dL (8-24); Bun/Creatinine Ratio 11.3 (12.0-20.0); CO2, Blood 24 mmol/L (21-32); Calcium, Blood 8.5 mg/dL (8.5-10.1); Chloride, Blood 91 mmol/L (98-108); Glomerular Filtration Rate 7 (60-); Glucose, Blood 92 mg/dL (70-99); Phosphorus, Blood 5.9 mg/dL (2.5-4.9); Potassium, Blood 3.7 mmol/L (3.5-5.5); Sodium, Blood 127 mmol/L (136-145)
--- NOTE | 2024-04-15 13:43 | NUR ---
CONTACTED INTERVENTIONAL RADIOLOGY TALKED TO DR PATEL WHO WILL CONTACT PATIENT AT BEDSIDE.
--- NOTE | 2024-04-15 16:38 | NUR ---
SHIFT REPORT: PATIENT A/O X 4. PATIENT HAS RIGHT NEPHROSTOMY TUBE WITH HIGH OUTPUT AND LEFT NEPHROSTOMY TUBE WITH MINIMAL OUTPUT. IR HAS BEEN CONSULTED AND WILL COME TO PATIENT BEDSIDE. PATIENT TO DISCHARGE HOME WITH HOSPICE. PATIENT ABLE TO CALL FOR ASSISTANCE WHEN NEEDED. IV INFUSING AT 75/HR NORMAL SALINE. CALL LIGHT WITHIN PATIENT REACH
[2024-04-15 20:15] VITALS: BP 116/73
[2024-04-16 03:05] VITALS: BP 128/83
--- NOTE | 2024-04-16 06:02 | NUR ---
Shift Summary R nephrostomy output is still significantly greater than L. R output went from pink tinge to clearish yellow while L side now has a pink tinge. Pt states that both sides seem to oscillate between no blood and pink tinge. She is rcving NS at 180. She took her home supplement x1 for lower back pain and she states her pain is managed well. Awaiting IR nephrostomy tube evaluation today then possible DC.
[2024-04-16 06:46] LABS: Anion Gap 13 mmol/L (3-11); Blood Urea Nitrogen 58 mg/dL (8-24); Bun/Creatinine Ratio 10.6 (12.0-20.0); CO2, Blood 23 mmol/L (21-32); Calcium, Blood 9.3 mg/dL (8.5-10.1); Chloride, Blood 101 mmol/L (98-108); Creatinine, Blood 5.45 mg/dL (0.40-1.00); Glomerular Filtration Rate 8 (60-); Glucose, Blood 89 mg/dL (70-99); Phosphorus, Blood 6.6 mg/dL (2.5-4.9); Potassium, Blood 3.8 mmol/L (3.5-5.5); Sodium, Blood 133 mmol/L (136-145)
[2024-04-16 08:14] VITALS: BP 128/74
--- NOTE | 2024-04-16 11:03 | NUR ---
DRESSING CHANGED WITH NEPHROSTOMY TUBES. AREA CLEANSED WITH NORMAL SALINE PAT DRY, COVERED WITH 2X2 AND TEGADERM. PATIENT TOLERTAED PROCEDURE WELL
[2024-04-16] MEDS ORDERED: OXYC5 PO (11:45)
[2024-04-16] MEDS ORDERED: HYDRA25 PO (11:45)
[2024-04-16] MEDS ORDERED: DOCU100 PO (11:45)
[2024-04-16] MEDS ORDERED: MIRALAX17 GM PO (11:46)
--- NOTE | 2024-04-16 15:54 | NUR ---
GOALS OF CARE CONVERSATION - 04/15/24 DELAYED ENTRY REVIEWED PT'S DAILY ACTIVITIES AND QUALITY OF LIFE PRIOR TO THIS HOSPITAL VISIT. 4 MONTHS AGO, PT WAS INDEPENDENT IN ALL ADLS/IADLS. AMBULATING UNASSITED. DENIES PAIN, N/V/D. CURRENTLY, SHE IS WEAK, SBA FOR AMBULATION. ORAL INTAKE IS UNCHANGED. CHRONIC CONSTIPATION. BILAT FLANK, ABD, RECTAL AND GLUTE PAIN. ORAL INTAKE HAS DECREASED BY 25% IN THE LAST 2 MONTHS. NOW HAS BILATEAL NEPHROSTOMY TUBES. YESTERDAY 04/15 RIGHT NEPHRO TUBE TRAINING CRANBERRY COLORED FLUID. LEFT NEPHRO TUBE NOT DRAINING. DURING PC RN VISIT PT REPORTED LEFT FLANK PAIN OF 7/10. PRIMARY RN ENTERED ROOM TO ADMINISTER PRN PAIN MEDS. AT END OF VISIT PAIN DECREASED TO 3/10. 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 PLAN TO D/C HOME WITH HOSPICE AFTER IR ASSESSES NEPHROSTOMY TUBE DRAINAGE.
--- NOTE | 2024-04-16 16:59 | NUR ---
SUPPORTIVE PALLIATIVE VISIT THIS MORNING 04/16/24. BRAD IS A/O X4. PLEASANT AND JOVIAL. ABLE TO MAKE NEEDS KNOWN. DENIED PAIN AT TIME OF VISIT. PT REPORTS INTERVENTIONAL RADIOLOGIST WAS IN THE ROOM JUST PRIOR TO THIS PC RN VISIT. BOTH NEPROSTOMY TUBES ARE PATENT AND DRAINING LIGHT CRANBERRY COLORED FLUID. NO ACUTE NEEDS AT THIS TIME.
== END 2024-04-16 13:49 | disposition hospice, home (50) | DRG 683 ==
LOC: ER 17:26 → ERHOLD 17:27 → MEDS 04-12 09:36 → ENPENDDIS 04-16 12:51 → MEDS 04-16 13:49
PROVIDERS: Hospitalist; Internal Medicine; Student in an Organized Health Care Education/Training Program; ADMIT Internal Medicine
DX: I12.9 Hypertensive chronic kidney disease with stage 1 through stage 4 chronic kidney disease, or unspecified chronic kidney disease (principal); E87.1 Hypo-osmolality and hyponatremia; N13.30 Unspecified hydronephrosis; N18.5 Chronic kidney disease, stage 5; N17.9 Acute kidney failure, unspecified; E87.20 Acidosis, unspecified; Z66 Do not resuscitate; D63.1 Anemia in chronic kidney disease; N88.9 Noninflammatory disorder of cervix uteri, unspecified; Z96.0 Presence of urogenital implants; Z51.5 Encounter for palliative care; Z93.6 Other artificial openings of urinary tract status; Z79.899 Other long term (current) drug therapy; Z28.21 Immunization not carried out because of patient refusal
CPT/HCPCS: 36415; 72197; 74019; 74176; 76770; 80048; 80053; 80069; 83540; 83550; 85025; 85027; 85610; 96374; 99285-25; A9270; A9579; G0378; J2597; J2916; J7030; J7070

== ENCOUNTER 2024-07-14 23:31 | Observation (INO) | payer OTHER ==
[~2024-07-14] VITALS: Ht 175.3 cm; Wt 52.5 kg
[~2024-07-14 23:31] MED LIST changes: +DOCU100 PO; +MIRALAX17 GM PO; +OXYC5 PO
[2024-07-15 00:21] LABS: BASOPHILS ABSOLUTE AUTO 0.05 K/mm3 (0.00-0.23); BASOPHILS PERCENT AUTO 1 % (0-2); EOSINOPHILS ABSOLUTE AUTO 0.05 K/mm3 (0.00-0.68); EOSINOPHILS PERCENT AUTO 1 % (0-6); Hematocrit 31.3 % (33.0-51.0); Hemoglobin 9.8 g/dL (11.5-16.0); IMMATURE GRAN ABSOLUTE AUTO 0.02 K/mm3 (0.00-0.10); IMMATURE GRAN PERCENT AUTO 0 % (0-1); LYMPHOCYTES PERCENT AUTO 9 % (21-46); MONOCYTES ABSOLUTE AUTO 0.55 K/mm3 (0.16-1.47); MONOCYTES PERCENT AUTO 5 % (4-13); Mean Corpuscular HGB 28.7 pg (26.0-34.0); Mean Corpuscular HGB Conc 31.3 g/dL (31.5-36.5); Mean Corpuscular Volume 92 fL (80-100); NEUTROPHILS PERCENT AUTO 85 % (41-73); Platelet Count 383 K/mm3 (150-400); RDW Coefficient Variation 14.4 % (11.7-14.2); RDW Standard Deviation 48.5 fL (35.1-46.3); Red Blood Cell Count 3.41 M/mm3 (3.80-5.20); White Blood Cell Count 10.57 K/mm3 (4.00-11.30)
[2024-07-15 00:40] LABS: Albumin, Blood 3.3 g/dL (3.4-5.0); Albumin/Globulin Ratio 0.7 (0.8-1.8); Bilirubin, Total 0.3 mg/dL (0.1-1.0); Calcium, Blood 8.9 mg/dL (8.5-10.1); Creatinine, Blood 2.63 mg/dL (0.40-1.00); Total Protein, Blood 8.3 g/dL (6.4-8.2)
[2024-07-15] MEDS ORDERED: NS 1,000 ML IV SCH (03:55)
[2024-07-15] MEDS ORDERED: FentaNYL Citrate 50 MCG/ML 2 ML Injection IV PRN (03:55)
[2024-07-15] MEDS ORDERED: Ondansetron HCl 2 MG / ML 2ML Vial IV PRN (03:55)
[2024-07-15 10:21] LABS: Source, Urine Nephrostomy
[2024-07-15 10:24] LABS: Appearance, Urine Clear (Clear); Bilirubin, Urine Neg (Neg); Blood, Urine 2+ (Neg); Color, Urine Yellow (P-Yellow); Glucose Qualitative, Urine Neg (Neg); Ketones, Urine Neg (Neg); Leukocyte Esterase, Urine 3+ (Neg); Nitrite, Urine Pos (Neg); Protein, Urine 1+ (Neg); Urobilinogen, Urine NORM (Normal)
[2024-07-15 10:34] LABS: Bacteria Many /hpf; Squamous Epithelial Cells Rare /hpf (Few)
[2024-07-15 14:19] VITALS: BP 118/77
[2024-07-15] MEDS ORDERED: NS 250 ML IV ONE (15:26)
[2024-07-15] MEDS ORDERED: NS 1,000 ML IV ONE (15:41)
[2024-07-15] MEDS ORDERED: Midazolam HCl 1MG / ML 2ML Vial ONE (15:41)
[2024-07-15] MEDS ORDERED: FentaNYL Citrate 50 MCG/ML 2 ML Injection ONE (15:41)
[2024-07-15 16:24] VITALS: BP 120/65
--- NOTE | 2024-07-15 18:41 | NUR ---
SHIFT SUMMARY PT AOX4, COOPERATIVE, ABLE TO MAKE NEEDS KNOWN. PT IS IND IN ROOM. SKIN IS INTACT. 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 LEFT TUBE BECAME DISLODGED WHICH IS REASON FOR ADMIT. WENT TO PROCEDURE TODAY TO HAVE REPLACED, PROCEDURE WENT WELL. BRIGHT RED DRAINING PRESENT IN BAG, IF DOES NOT LIGHTEN UP IN COUPLE DAYS, NOTIFY MD. PT IS RUNNING NS PER 1 BAG. BED IN LOWEST POSITION, CALL LIGHT WITHIN REACH.
[2024-07-16 03:58] VITALS: BP 108/61
[2024-07-16 04:56] LABS: BASOPHILS ABSOLUTE AUTO 0.06 K/mm3 (0.00-0.23); BASOPHILS PERCENT AUTO 1 % (0-2); EOSINOPHILS ABSOLUTE AUTO 0.28 K/mm3 (0.00-0.68); EOSINOPHILS PERCENT AUTO 4 % (0-6); Hematocrit 26.8 % (33.0-51.0); Hemoglobin 8.6 g/dL (11.5-16.0); IMMATURE GRAN ABSOLUTE AUTO 0.02 K/mm3 (0.00-0.10); IMMATURE GRAN PERCENT AUTO 0 % (0-1); LYMPHOCYTES ABSOLUTE AUTO 1.25 K/mm3 (0.84-5.20); LYMPHOCYTES PERCENT AUTO 18 % (21-46); MONOCYTES ABSOLUTE AUTO 0.91 K/mm3 (0.16-1.47); MONOCYTES PERCENT AUTO 13 % (4-13); Mean Corpuscular HGB 29.4 pg (26.0-34.0); Mean Corpuscular HGB Conc 32.1 g/dL (31.5-36.5); Mean Corpuscular Volume 92 fL (80-100); Mean Platelet Volume 9.2 fL (9.1-12.4); NEUTROPHILS ABSOLUTE AUTO 4.53 K/mm3 (1.96-9.15); NEUTROPHILS PERCENT AUTO 64 % (41-73); Platelet Count 304 K/mm3 (150-400); RDW Coefficient Variation 14.4 % (11.7-14.2); RDW Standard Deviation 48.4 fL (35.1-46.3); Red Blood Cell Count 2.93 M/mm3 (3.80-5.20); White Blood Cell Count 7.05 K/mm3 (4.00-11.30)
--- NOTE | 2024-07-16 05:11 | NUR ---
PT A&OX4, INDEPENDENT IN RM. R NEPHROSTOMY DRAINING YELLOW URINE, LEFT NEPHROSTOMY DRAINING BLOOD TINGED URINE. DRESSINGS ARE DRY AND INACT.
[2024-07-16 05:25] LABS: Albumin, Blood 2.8 g/dL (3.4-5.0); Anion Gap 11 mmol/L (3-11); Blood Urea Nitrogen 42 mg/dL (8-24); Bun/Creatinine Ratio 16.9 (12.0-20.0); CO2, Blood 23 mmol/L (21-32); Calcium, Blood 8.5 mg/dL (8.5-10.1); Chloride, Blood 107 mmol/L (98-108); Creatinine, Blood 2.49 mg/dL (0.40-1.00); Glomerular Filtration Rate 21 (60-); Glucose, Blood 71 mg/dL (70-99); Magnesium, Blood 2.1 mg/dL (1.6-2.4); Phosphorus, Blood 2.8 mg/dL (2.5-4.9); Potassium, Blood 3.8 mmol/L (3.5-5.5); Sodium, Blood 137 mmol/L (136-145)
[2024-07-16 07:29] VITALS: BP 100/61
--- NOTE | 2024-07-16 10:54 | NUR ---
DISCAHRGE DISCHARGE ORDER RECEIVED. PT IV REMOVED. DISCAHRGE INSTRUCTIONS GIVEN. APAERWORK SUPPLIED TO PT. PT CALLED HER RIDE. PT HELPED OUTSIDE VIA W/C. CARE ON GOING.
== END 2024-07-16 10:54 | disposition home or self-care (01) ==
LOC: ER 23:31 → ERHOLD 23:32 → MEDS 07-15 14:17
PROVIDERS: Family Medicine; Student in an Organized Health Care Education/Training Program; ADMIT Internal Medicine
DX: T83.022A Displacement of nephrostomy catheter, initial encounter (principal); N17.9 Acute kidney failure, unspecified; C53.9 Malignant neoplasm of cervix uteri, unspecified; N13.1 Hydronephrosis with ureteral stricture, not elsewhere classified; I12.9 Hypertensive chronic kidney disease with stage 1 through stage 4 chronic kidney disease, or unspecified chronic kidney disease; D64.9 Anemia, unspecified; N18.30 Chronic kidney disease, stage 3 unspecified; Z79.899 Other long term (current) drug therapy
CPT/HCPCS: 36415; 50435; 76770; 80053; 80069; 81001; 83690; 83735; 83880; 85025; 87077; 87086; 87186; 99284-25; C1729; C1769; C1887; G0378; J2250; J3010; J7030; J7050; Q9967

== ENCOUNTER 2025-02-20 09:05 | Day surgery (SDC) | payer OTHER ==
[~2025-02-20] VITALS: Ht 172.7 cm; Wt 49.9 kg
[2025-02-20] MEDS ORDERED: HYDROCODONE-AC1 EA19 PO (09:37)
[2025-02-20] MEDS ORDERED: ACET500 PO (09:38)
[2025-02-20] MEDS ORDERED: CEFP200 PO (09:38)
[2025-02-20] MEDS ORDERED: PROBIOTIC1 EA14 PO (09:38)
[2025-02-20] MEDS ORDERED: NS 250 ML IV ONE (09:50)
[2025-02-20 10:36] VITALS: BP 125/86
--- NOTE | 2025-02-20 11:04 | NUR ---
PATIENT TO RECOVERY ROOM S/P BILAT NEPH TUBE REPLACEMENT/EXCHANGE. NO SEDATION USED. PATIENT AWAKE AND ALERT, VSS. PT DENIES COMPLAINTS. DRSG'S INTACT/WNL. PATIENT DRAINED BOTH BAGS PRIOR TO DISCHARGE. RIGHT MORE URINE THAN LEFT, PATIENT STATES THIS IS NORMAL FOR HER. VERBAL AND WRITTEN DISCHARGE INSTRUCTIONS GIVEN WITH CLEAR UNDERSTANDING. PATIENT DC'D HOME IN STABLE CONDITION AT 1102.
== END 2025-02-20 23:00 | disposition home or self-care (01) ==
LOC: MHTC 09:05
DX: C53.9 Malignant neoplasm of cervix uteri, unspecified (principal); Z43.6 Encounter for attention to other artificial openings of urinary tract
CPT/HCPCS: 76937; 99152; C1729; C1769; J7050; Q9967